=== PATIENT | male | born 1970 | race Caucasian/White ===

== ENCOUNTER 2020-10-02 12:16 | Emergency (ER) | payer MEDICAID ==
[2020-10-02] MEDS ORDERED: Lidocaine 2% Viscous Solution 15 ML UD PO ONE (13:15)
--- NOTE | 2020-10-02 13:15 | EDM.PDOC ---
ED HPI GENERAL MEDICAL PROBLEM - General Stated Complaint: TOOTHACHE Time Seen by Provider: 10/02/20 13:07 Source of Information: Reports: Patient, RN, RN Notes Reviewed History Limitations: Reports: No Limitations - History of Present Illness INITIAL COMMENTS - FREE TEXT/NARRATIVE: Patient presents to the ED via personal vehicle with complaints of dental pain. The patient states the pain began on the left lower eye tooth last evening and the right upper molar at approximately 0400 this morning. He rates the pain in the right upper molar higher and notes it radiates throughout the gum. He has taken aspirin for this pain with little to no alleviation of symptoms. He denies fever, shaking chills, palpitations, nausea, or vomiting. He states he has not been to the dentist in some time as he is not from the area and has not established with a dental home. Oral/Mouth Pain Score (Numeric/FACES): 8 - Related Data Allergies Allergy/AdvReac Type Severity Reaction Status Date / Time Penicillins Allergy Cannot Verified 10/02/20 13:01 Remember Home Meds: Home Meds . [No Known Home Meds] 10/02/20 [History] Past Medical History - Past Health History Medical/Surgical History: Denies Medical/Surgical History Social & Family History - Tobacco Use Tobacco Use Status *Q: Current Every Day Tobacco User Years of Tobacco use: 1 Packs/Tins Daily: 0.1 - Recreational Drug Use Recreational Drug Use: No ED ROS ENT - Review of Systems Review Of Systems: Comprehensive ROS is negative, except as noted in HPI. ED EXAM, ENT - Physical Exam Exam: See Below Exam Limited By: No Limitations General Appearance: Alert, WD/WN, No Apparent Distress Eye Exam: Bilateral Eye: EOMI, Normal Inspection, PERRL (4mm) Ears: Normal External Exam, Normal Canal, Hearing Grossly Normal, Normal TMs Nose: Normal Inspection, Normal Mucousa, No Blood. No: Nasal Discharge, Nasal Swelling, Nasal Tenderness Mouth/Throat: Dental Pain (To right and left upper teeth), Dental Tenderness (To right and left upper theeth), Other (Multiple missing and broken teeth; Poor dentition throughout). No: Dental Trauma, Gum Swelling, Hoarse Voice, Muffled Voice, Oral Ulcers, Throat Pain, Throat Swelling Head: Atraumatic, Normocephalic Neck: Normal Inspection, Supple, Non-Tender, Full Range of Motion. No: Lymphadenopathy (L), Lymphadenopathy (R) Respiratory/Chest: No Respiratory Distress, Lungs Clear, Normal Breath Sounds, No Accessory Muscle Use, Chest Non-Tender Neurological: Alert, Oriented, CN II-XII Intact, Normal Cognition, Normal Gait, No Motor/Sensory Deficits Skin: Warm, Dry, Intact, Normal Color, No Rash. No: Ecchymosis, Erythema, Jaundice, Mottled, Pallor, Petechiae, Wound/Incision Course - Vital Signs Last Recorded V/S: Last Vital Signs Temp 97.5 F 10/02/20 12:58 Pulse 62 10/02/20 12:58 Resp 18 10/02/20 12:58 BP 151/105 H 10/02/20 12:58 Pulse Ox 96 10/02/20 12:58 - Orders/Labs/Meds Meds: Medications Discontinued Medications Generic Name Dose Route Start Last Admin Trade Name Tariqq PRN Reason Stop Dose Admin Lidocaine HCl 15 ml 10/02/20 13:15 10/02/20 13:24 Xylocaine 2% Viscous PO 10/02/20 13:16 15 ml ONETIME ONE Administration Departure - Departure Time of Disposition: 13:32 Disposition: Home, Self-Care 01 Condition: Fair Clinical Impression: Pain, dental, Poor dentition, Dental caries extending into dentin - Discharge Information *PRESCRIPTION DRUG MONITORING PROGRAM REVIEWED*: Not Applicable *COPY OF PRESCRIPTION DRUG MONITORING REPORT IN PATIENT LISA: Not Applicable Instructions: Managing Pain Without Opioids Forms: ED Department Discharge Additional Instructions: Rx: Clindamycin Rx: Viscous Lidocaine 1.) Follow up with a dentist early next week. 2.) Take all of your antibiotic until it is gone. 3.) You may take acetaminophen (Tylenol) 650mg every six hours, as pain persists. You may take ibuprofen (Advil/Motrin) 400mg every six hours, as pain persists. You may stagger these medications so you are taking a dose of medicine every three hours. Sepsis Event Note (ED) - Evaluation Sepsis Screening Result: No Definite Risk - Focused Exam Vital Signs: Vital Signs Temp Pulse Resp BP Pulse Ox 10/02/20 12:58 97.5 F 62 18 151/105 H 96
== END 2020-10-02 13:38 | disposition home or self-care (01) ==
LOC: DL.ED 12:16
DX: K02.9 Dental caries, unspecified (principal); Z88.0 Allergy status to penicillin; Z72.0 Tobacco use
CPT/HCPCS: 99282; A9270; 99283

== ENCOUNTER 2023-02-03 20:01 | Emergency (ER) | payer BC, MEDICAID ==
[2023-02-03] MEDS ORDERED: Orphenadrine 60 MG/2 ML Inj IM ONE (20:32)
[2023-02-03] MEDS ORDERED: methylPREDNISolone Sodium Succinate 125 MG/2 ML SDV IM ONE (20:33)
[2023-02-03 20:40] LABS: APPEARANCE,URINE CLEAR (CLEAR); BILIRUBIN,URINE NEGATIVE (NEGATIVE); COLOR,URINE YELLOW (YELLOW); GLUCOSE,URINE NEGATIVE (NEGATIVE); KETONES,URINE NEGATIVE (NEGATIVE); LEUKOCYTE ESTERASE,URINE NEGATIVE (NEGATIVE); NITRITE,URINE NEGATIVE (NEGATIVE); OCCULT BLOOD,URINE MODERATE (NEGATIVE); PROTEIN,URINE TRACE (NEGATIVE); UROBILINOGEN,URINE 0.2 mg/dL (0.2-1.0)
[2023-02-03 20:52] LABS: AMORPHOUS SEDIMENT,URINE RARE /HPF (NOT SEEN); BACTERIA,URINE RARE /HPF (0-FEW/HPF); EPITHELIAL CELLS,URINE RARE /HPF (NOT SEEN); MUCUS,URINE FEW /LPF (NOT SEEN); RBC,URINE 20-30 /HPF (0-5); WBC,URINE 0-5 /HPF (0-5/HPF)
[2023-02-03 20:53] LABS: AMPHETAMINES,URINE NEGATIVE (NEGATIVE); BARBITURATES,URINE NEGATIVE (NEGATIVE); BENZODIAZEPINE,URINE NEGATIVE (NEGATIVE); MDMA (ECSTASY), URINE NEGATIVE (NEGATIVE); METHADONE,URINE NEGATIVE (NEGATIVE); METHAMPHETAMINES,URINE NEGATIVE (NEGATIVE); OPIATES,URINE NEGATIVE (NEGATIVE); OXYCODONE,URINE NEGATIVE (NEGATIVE); PHENCYCLIDINE,URINE NEGATIVE (NEGATIVE); TCA,URINE NEGATIVE (NEGATIVE)
[2023-02-03] MEDS ORDERED: Take Home: Cyclobenzaprine 10 MG Tab, 4 Tab Pack PO ONE (21:53)
== END 2023-02-03 22:03 | disposition home or self-care (01) ==
LOC: DL.ED 20:01
DX: M54.41 Lumbago with sciatica, right side (principal); R31.21 Asymptomatic microscopic hematuria; F17.210 Nicotine dependence, cigarettes, uncomplicated; Z88.0 Allergy status to penicillin
CPT/HCPCS: 72100; 80305-QW; 81001; 96372; 99283; A9270-GY; J2360; J2930